=== PATIENT | male | born 1980 | race Caucasian/White ===

== ENCOUNTER 2024-03-18 18:38 | Emergency (ER) | payer MEDICAID ==
[~2024-03-18] VITALS: Ht 185.4 cm; Wt 89.8 kg
[2024-03-18 19:25] VITALS: BP_SYST 114; PULSE 80; RESP 18; TEMP 98.1; O2SAT 96
[2024-03-18 21:40] VITALS: BP_SYST 114; PULSE 80; RESP 18; TEMP 98.1; O2SAT 96
== END 2024-03-18 21:53 | disposition home or self-care (01) ==
LOC: SED 18:38
DX: Z20.822 Contact with and (suspected) exposure to COVID-19 (principal)
CPT/HCPCS: 36415; 99283

== ENCOUNTER 2024-03-21 18:06 | Emergency (ER) | payer MEDICAID ==
[~2024-03-21] VITALS: Ht 185.4 cm; Wt 89.8 kg
[2024-03-21 18:22] VITALS: BP_SYST 131; PULSE 89; RESP 20; TEMP 98.3; O2SAT 100
[2024-03-21] MEDS ORDERED: ZIT250 PO (21:45)
[2024-03-21 22:03] VITALS: BP_SYST 128; PULSE 85; RESP 18; TEMP 98.2; O2SAT 99
== END 2024-03-21 22:03 | disposition home or self-care (01) ==
LOC: SED 18:06
DX: U07.1 COVID-19 (principal); R05.9 Cough, unspecified; R09.81 Nasal congestion; R50.9 Fever, unspecified; I10 Essential (primary) hypertension
CPT/HCPCS: 36415; 99283

== ENCOUNTER 2024-05-13 14:32 | Emergency (ER) | payer MEDICAID ==
[~2024-05-13] VITALS: Ht 185.4 cm; Wt 90.7 kg
[~2024-05-13 14:32] MED LIST: ZIT250 PO
[2024-05-13 14:50] VITALS: BP_SYST 130; PULSE 80; RESP 18; TEMP 98.5; O2SAT 97
== END 2024-05-13 15:30 | disposition left against medical advice (07) ==
LOC: SED 14:32
DX: R51.9 Headache, unspecified (principal); Z53.21 Procedure and treatment not carried out due to patient leaving prior to being seen by health care provider